=== PATIENT | female | born 1940 | race Caucasian/White ===

== ENCOUNTER 2016-07-10 01:59 | Inpatient (IN) | payer OTHER ==
[~2016-07-10] VITALS: Ht 167.6 cm; Wt 74.8 kg
[~2016-07-10 01:59] MED LIST: AMOXIL500 MG PO; CLARINEX 5 MG TA5 MG PO; CLOPIDOGREL75 M1 PO; COMBIVENT1 ARO INH; CRESTOR40 MG PO; CYCLOBENZAPRINE10 M1 PO; DILTIAZEM ER120 M2 PO; FLEXERIL10 MG PO; GLIPIZIDE5 M2 PO; LASTACAFT OPH; MATZIM PO; MOMETASONE0.05 MG/Ac NASB; OMEPRAZOLE20 M2 PO; PATANOL 5 ML5 ML OPH; PERCOCET 325 MG1 TA2 PO; PERCOCET 5-3251 EACH PO; PREDNISONE 20MG20 MG PO; ZITHROMAX Z-PA250 M1 PO; ZOFRAN ODT4 M1 SL
--- NOTE | 2016-07-10 10:57 | NUCLEAR MEDICINE REPORT ---
EXAMINATION: LYMPHOSCINTIGRAPHY CLINICAL INFORMATION: Reason for Study:
Signs Symptoms: RIGHT BREAST RECURRENT DCIS
COMPARISON: None. TECHNIQUE: A total of 1.0 mCi technetium 99m Lymphoseek was injected in divided doses around the right areola by Dr. Polanco. Images of the right breast and axilla in the anterior, DAVILA, and right lateral projections were obtained with simultaneous visualization of the body silhouette using a cobalt flood source, with the patient positioned between the flood source and the gamma camera. FINDINGS: A sentinal node is visualized in the right axilla. No second echelon node is visualized in the right axilla. IMPRESSION: A sentinal node in the right axilla is well visualized.
[2016-07-10] MEDS ORDERED: MATZIM LA360 M1 PO (12:06)
[2016-07-10] MEDS ORDERED: PLAVIX75 M1 PO (12:07)
--- NOTE | 2016-07-10 14:04 | Operative Report ---
Operative/Inv Procedure Report Surgery Date: 07/10/16 Name of Procedure: right total mastectomy, right axillary SNB, injection of blue dye Pre-Operative Diagnosis: right breast cancer Post-Operative Diagnosis: same Estimated Blood Loss: scant Surgeon/Light Rail Signal Technician: KINGSLEY MEDRANO,ELISHA NOVAK Anesthesia: general endotracheal tube Operative/Procedure Note Note: We reviewed the preoperative lymphoscintigraphy images, patient was placed on the OR table supine and her chest and neck and right axilla and upper arm were prepped and draped in the usual sterile fashion. There was a scar from previous excision on her right breast in the 10 o'clock position about a centimeter from the areolar edge, just superior to this scar I injected 2 mL's of diluted blue dye, subdermally. In a skin crease in her right axilla posterior to the pectoralis we infiltrated local anesthetic then made a 3 cm incision, we deepened this incision with both sharp and blunt dissection at first with cautery through the clavipectoral fascia place a Elina retractor in and underneath the edge of the pectoralis, this sentinel node was deep and medial as seen on the imaging, we used the neoprobe to guide us at the primary injection site the counts were as high as 15,000 in the axilla they were as high as 40 but as we got closer to the node the increased. Eventually we were able to pinpoint this lymph node it was very small and round and it had a count of 400 mm when we excised it. The background count now is less than 10. This little node was not blue. We did not see any other lymph nodes in the area. Care was taken to not injure any vessels or nerves during the dissection. This incision was then reapproximated with interrupted 3-0 Vicryl sutures for the clavipectoral fascia and subcutaneous followed by running subcuticular 4-0 Biosyn suture for the skin itself followed by Mastisol Steri-Strips. Final dressing was applied after the mastectomy Next we marked an elliptical incision on the right breast, around the nipple areolar complex and also including the previous scar, following the skin lines. This was deepened just through the dermis into the superficial subcutaneous layer and then Alexandrea clamps were placed into the dermis and the upper flap retracted upwards to separate the subcutaneous layer from the breast, some vessels were encountered in the subcutaneous layer these were small and preserved at times will need cautery to control them on the other side deeper coming through the muscle were vessels as well as we proceeded superiorly towards the clavicle and in one spot it was sizable enough to warrant 3-0 Vicryl suture. Once the superior flap was finished we started to take the superior portion of the breast off the muscle including the fascia using Allis clamps to help retract we also developed the inferior flap towards the rectus muscle medially and the serratus laterally and the dissection and separation continued from both sides including lifting the breast off of the muscle, eventually converging at the tail of the breast at the end laterally this did not enter the field of the sentinel node biopsy. After the breast was completely removed we checked for hemostasis irrigated and the plastic surgeon came in to complete the operation with the first phase of reconstruction. From my portion estimated blood loss minimal lap and sponge counts were correct wound expectancy was clean IV fluids crystalloid complications none the patient tolerated the procedure well.
--- NOTE | 2016-07-10 14:30 | Operative Report ---
Operative/Inv Procedure Report Surgery Date: 07/10/16 Name of Procedure: Right-sided breast reconstruction with tissue pricing consultant and AlloDerm Pre-Operative Diagnosis: Absent breast right Post-Operative Diagnosis: Same Estimated Blood Loss: scant Surgeon/Fiberglasser: TYSON Anesthesia: general endotracheal tube Operative/Procedure Note Note: Patient was counseled regards to the procedure the alternatives the risks and the expected outcomes as relates to her request for surgical intervention to replace an absence of breasts. Tissue pricing consultant and breast implant technique. The patient is a current smoker. THE additional risks with smoking and radiation have a significant impact on the aesthetic outcome of breast reconstruction with tissue expanders and implants. She'll be unable to discontinue the use of tobacco products and would like to proceed dissecting the additional risks. Also talked about infection bleeding pain seroma to explant due to infection and persistent drainage problems as well as tissue necrosis of the mastectomy flap once agreed informed consent was signed. She was taken to the operating room under the direction of Og Barksdale MD. At the completion of the mastectomy the area was prepped and drapes were placed in the periphery. Instrumentation was used. Site was irrigated which replanted biotic and Betadine. The pectoralis was released inferiorly and inferior medially. Cc tissue pricing consultant was then placed as well as an inferior sling of AlloDerm. Drains were placed above and below the AlloDerm. The wound was closed in 3 layers. Ends dictation
--- NOTE | 2016-07-10 15:47 | Admission Core Measures ---
Admission Meds I reviewed the following Meds: Current Medications Sig/Oliver Start time Last Medication Dose Stop Time Status Admin Cefazolin Sodium 1,000 MG ONCE 07/10 0000 NR (Kefzol-Ancef Inj) 07/10 0229 Acute Coronary Syndrome Inclusion Criteria ACS Diagnosis No Inpatient Core Measures LDL Reminder: If No, please order W/I first 24hr of stay Congestive Heart Failure Inclusion Criteria CHF Diagnosis No Cerebrovascular accident Inclusion Criteria CVA/TIA Diagnosis No Inpatient Core Measures Bedside Swallow Eval Reminder: If BSE failed, place ST order Antithrombotic Reminder: Order Antithrombotic Medication by end of day 2 Antithrombotic Reminder: Document Reason Antithrombotic Not ordered by end of day 2 AFIB/Flutter Reminder: If Present, add to problem list AFIB/Flutter Reminder: Order Anticoag Medication for pts with AFIB/Flutter Atherosclerosis Reminder: If Present, add to problem list LDL Reminder: If No, please order W/I first 24hr of stay PT Order Reminder: If No, please order Venous thromboembolism Inpatient Core Measures VTE Risk Factors: Age > 40, Cancer/chemo/oth therapy, Surgery VTE Prophylaxis Ordered Inpt Mech & Pharm No Mech VTE prophylaxis d/t No contraindications No VTE Pharm Prophylaxis d/t No contraindications Inclusion Criteria - Per Current guidelines, there needs to be overlap - treatment for the first 5 days of Warfarin therapy. - Parenteral Anticoagulation (IV or SC) needs to be - given along with Warfarin therapy. VTE Diagnosis No VTE Type NONE VTE Confirmed by (Test) NONE Problem List As ranked by this Provider includes Assessment & Plan 1. Breast cancer 2. Status post mastectomy 3. S/P breast reconstruction, right HOME MEDS Home Med List Alcaftadine (Lastacaft) 2.5 MG/ML QUINTIN 1 GTT OPH DAILY PRN ALLERGIES (Reported ) Clopidogrel Bisulfate (Plavix) 75 MG TABLET 75 MG PO D BLOOD THINNER ( Reported) Diltiazem HCl (Matzim LA) 360 MG TAB.ER.24H 360 MG PO D BLOOD PRESSURE ( Reported) Glipizide 5 MG TABLET 1 TAB PO QPM DM (Reported) Mometasone Furoate (Nasonex) 0.05 MG/Actuation SPR 2 SPRAY [place] DAILY ALLERGIES (Reported) Omeprazole 20 MG CAPSULE.DR 40 MG PO BID DUODENAL ULCER Ondansetron (Zofran Odt) 4 MG TAB.RAPDIS 1 TAB SL TID NAUSEA Discontinued Medications Diltiazem Cd (Diltiazem ER) 120 MG CAP.ER.DEG 120 MG PO DAILY heart Discontinued reason: Changed Dose
--- NOTE | 2016-07-10 16:59 | PN- General Surgery ---
Subjective Subjective: post-op note: Reports some nausea and dizziness while waking up in pacu. Reports some minor right sided chest / incisional discomfort. Not yet drinking. Not yet out of bed. Objective Vital Signs and I&Os Intake & Output 07/10 1600 07/10 0800 07/10 0000 07/09 1600 07/09 0800 07/09 0000 Intake Total Output Total Balance Patient 165 lb Weight Physical Exam: General - alert. sleepy. no acute distress. Lungs - clear bilaterally. no w/r/r. Cardiac - s1s2. reg. Chest - right sided dressing c/d/i. MADI drains (2) with approximately 50 mls bloody drainage (total) Abdomen - soft. nontender. - mcmillan draining clear, yellow urine. Extremities - warm bilaterally. no c/c/e. venodynes active b/l. Assessment/Plan Assessment/Plan This 75 year old white female with hx niddm, hld, hx tia, htn, right breast cancer, is now POD#0 s/p right total mastectomy, right axillary SNB, breast reconstruction with alloderm and tissue printed circuit board pcb draftsman advance diet as tolerated tony-operative ancef x 2. no need to be discharged with antibiotics per pain control as needed hep sc to start in the morning mcmillan for strict i/o's overnight, to be removed in the morning f/u am labs monitor drain output consider restarting daily dose of plavix tomorrow if MADI drain output seems reasonable / labs stable home meds restarted otherwise case repairer to assist with vns services for drain care to be discharged with both drains, to follow up with and within one week d/w and Core Measures/Miscellaneous Venous Thromboembolism VTE Risk Factors: Age > 40, Cancer/chemo/oth therapy, Smoking, Surgery VTE Contraindications: No Contraindications VTE Prophylaxis Ordered Inpt Mech & Pharm VTE Diagnosis: No VTE Type: NONE VTE Confirmed by (Test): NONE Beta Shoaib Is Beta Shaoib a Home Med? No Antibiotics Is Patient on Antibiotics? Yes If Yes: prophylaxis
[2016-07-10 19:20] VITALS: BP 110/60
--- NOTE | 2016-07-10 20:31 | NUR ---
PATIENT RECEIVED FROM PACU AT 1920. PATIENT DROWSY BUT AROUSABLE. MADI DRAIN TO RIGHT CHEST DRAINING SEROUS DRAINAGE. DELVALLE CATHETER INTACT AND DRAINING CLEAR CHARLIE URINE. IV FLUID INFUSING AT 100 ML/HR. SPOUSE AT BEDSIDE. PATIENT C/O PAIN AT 7/10. PAIN MEDICATION GIVEN ORDERED. CALL LIGHT WITHIN REACH. WILL CONTINUE TO MONITOR.
[2016-07-10 21:06] VITALS: BP 132/64
[2016-07-11 00:56] VITALS: BP 154/68
[2016-07-11 03:09] VITALS: BP 144/66
[2016-07-11 05:03] VITALS: BP 162/74
[2016-07-11] MEDS ORDERED: DOCUSATE SODIU100 M3 PO (07:38)
--- NOTE | 2016-07-11 07:38 | PN- General Surgery ---
Subjective Subjective: Reports slight nausea this morning, which she feels is related to her taking medications without food. Tolerating clears. Eager to try food and anticipates discharge to home today. She expresses an interest in vna services for drain care. She hasn't been out of bed yet. No dizziness. No shortness of breath. Expected chest / breast discomfort. Objective Vital Signs and I&Os Vital Signs Date Time Temp Pulse Resp B/P Pulse O2 O2 Flow FiO2 Ox Delivery Rate 07/11 0503 98.0 72 19 162/74 92 Nasal 2.0L Cannula 07/11 0309 97.6 76 19 144/66 93 Nasal 2.0L Cannula 07/11 0056 98.1 59 18 154/68 96 Nasal 2.0L Cannula 07/11 0000 Nasal 2.0L Cannula 07/10 2105 98.0 63 20 132/64 96 Room Air 07/10 1927 91 Nasal 2.0L Cannula 07/10 1919 97.7 81 20 110/60 91 Nasal 2.0L Cannula Intake & Output 07/11 0800 07/11 0000 07/10 1600 07/10 0800 07/10 0000 07/09 1600 Intake Total 780 Output Total 703 1545 Balance -703 -765 Intake, IV 300 Intake, Oral 480 Output, 53 45 Drainage Output, Urine 650 1500 Physical Exam: General - alert & oriented x 3. comfortable. no acute distress. Lungs - clear bilaterally. no w/r/r. Cardiac - s1s2. reg. Chest - right sided dressing c/d/i. MADI drains with serosang drainage Abdomen - soft. nontender. - mcmillan draining clear, yellow urine Extremities - warm bilaterally. no c/c/e. calves soft and nontender b/l. Assessment/Plan Assessment/Plan This 75 year old white female with hx niddm, hld, hx tia, htn, right breast cancer, is now POD#1 s/p right total mastectomy, right axillary SNB, breast reconstruction with alloderm and tissue textile finisher advance diet as tolerated. d/c iv fluids tony-operative ancef x 2 completed oxycodone as directed for pain control she refused heparin sc this morning despite being educated. she is going to try ambulating this am. d/c mcmillan f/u am labs MADI drain teaching restart plavix at home when discharged home meds ordered showcase trimmer to assist with vns services for drain care d/c home today with vna / drain care will d/w and Core Measures/Miscellaneous Venous Thromboembolism VTE Risk Factors: Age > 40, Cancer/chemo/oth therapy, Smoking, Surgery VTE Contraindications: No Contraindications VTE Prophylaxis Ordered Inpt Mech & Pharm VTE Diagnosis: No VTE Type: NONE VTE Confirmed by (Test): NONE Beta Shoaib Is Beta Shoaib a Home Med? No Antibiotics Is Patient on Antibiotics? Yes If Yes: prophylaxis
[2016-07-11] MEDS ORDERED: TYLENOL325 M1 PO (07:40)
[2016-07-11] MEDS ORDERED: OXYCODONE HCL5 M1 PO (07:40)
--- NOTE | 2016-07-11 07:43 | Patient Discharge Instructions ---
Discharge Instructions General Discharge Information You were seen/treated for: right breast cancer You had these procedures: Surgery Date: 07/10/16 Name of Procedure: right total mastectomy, right axillary SNB, injection of blue dye Right-sided breast reconstruction with tissue harvest contractor and AlloDerm Watch for these problems: fever>101.3, increased pain, increased drainage, shortness of breath, dizziness Other wound care: dry guaze dressing change daily, right breast. leave white steri strips in place - they will fall off. Special Instructions: MADI drain care Diet Continue normal diet: Yes Recommended Diet: Diabetic Activity Full Activity/No Limits: No Activity Self Limited: Yes Other activity limits: see pre-printed instructions given by pre-operatively Acute Coronary Syndrome Inclusion Criteria At DC or during hospital stay patient has or had the following: ACS DIAGNOSIS No Discharge Core Measures Meds if any: Prescribed or Continued at Discharge Meds if any: NOT Prescribed or Continued at Discharge Congestive Heart Failure Inclusion Criteria At DC or during hospital stay patient has or had the following: CHF DIAGNOSIS No Discharge Core Measures Meds if any: Prescribed or Continued at Discharge Meds if any: NOT Prescribed or Continued at Discharge Cerebrovascular accident Inclusion Criteria At DC or during hospital stay patient has or had the following: CVA/TIA Diagnosis No Discharge Core Measures Meds if any: Prescribed or Continued at Discharge Meds if any: NOT Prescribed or Continued at Discharge Venous thromboembolism Inclusion Criteria VTE Diagnosis No VTE Type NONE VTE Confirmed by (Test) NONE Discharge Core Measures - Per Current guidelines, there needs to be overlap - treatment for the first 5 days of Warfarin therapy. - If discharged on Warfarin prior to 5 days of - overlap therapy, the patient will need to be - assessed for post discharge needs including - *Post discharge parental anticoagulation - *Warfarin and/or parental anticoagulation education - *Follow up date to check INR post discharge At least 5 days overlap therapy as Inpatient No Meds if any: Prescribed or Continued at Discharge Note: Overlap Therapy is Warfarin and Anticoagulant Meds if any: NOT Prescribed or Continued at Discharge
[2016-07-11 08:13] LABS: ABSOLUTE BASOPHIL COUNT 0 /CUMM (0.0-0.2); ABSOLUTE EOSINOPHIL COUNT 0.1 /CUMM (0.0-0.7); ABSOLUTE GRANULOCYTE CT 5.6 /CUMM (1.4-6.5); ABSOLUTE LYMPH COUNT 1.6 /CUMM (1.2-3.4); ABSOLUTE MONOCYTE COUNT 0.9 /CUMM (0.10-0.60); BASOPHIL % 0.4 % (0.0-2.0); EOSINOPHIL % 0.8 % (0-5); GRANULOCYTE % 68.8 % (42.2-75.2); HEMATOCRIT 36.8 % (37-47); MEAN CORPUSCULAR HGB CONC 33.5 G/DL (33.0-37.0); MEAN CORPUSCULAR VOLUME 83.6 FL (81.0-99.0); MEAN PLATELET VOLUME 9.2 FL (7.4-10.4); PLATELET COUNT 206 /CUMM (130-400); RBC DISTRIBUTION WIDTH 17.6 % (11.5-14.5); WHITE BLOOD CELL COUNT 8.2 /CUMM (4.8-10.8)
[2016-07-11 09:07] VITALS: BP 156/70
[2016-07-11] MEDS ORDERED: ULTRAM50 M1 PO (14:27)
--- NOTE | 2016-07-23 18:33 | Discharge Summary ---
Visit Information Visit Dates Admission Date: 07/10/16 Discharge Date: 07/11/16 Hospital Course Course Attending Physician: KINGSLEY MEDRANO,ELISHA Lizarraga Primary Care Physician: KEVIN WELLER Hospital Course: Patient underwent a right mastectomy right axilla sentinel for biopsy and reconstruction and was kept admitted overnight for analgesics monitoring the skin flaps the drainage for bleeding she did require IV analgesics overnight dressing was dry the drains with stay, she did well overall and was discharged on oral analgesics. Allergies: Coded Allergies: morphine (Mild, VOMITING 09/17/15) Disposition Summary Disposition Principal Diagnosis: breast cancer Additional Diagnosis: same Discharge Disposition: home or self care Discharge Instructions General Discharge Information Code Status: Full Code Patient's Diet: resume Patient's Activity: no straining or heavy lifting Follow-Up Instructions/Appts: Next week in our office but call plastic surgery for their follow-up Medications at Discharge Discharge Medications: Continue taking these medications: Rosuvastatin Calcium (Crestor) 40 MG TAB 1 Tablet ORAL Qty = 36 Instructions: TAKES 3 DAYS A WEEK Glipizide (Glipizide) 5 MG TABLET 1 Tablet ORAL Every night Comments: NOT GIVEN IN HOSPITAL. Mometasone Furoate (Nasonex) 0.05 MG/Actuation SPR 2 [place] Both sides of nose DAILY Qty = 17 Alcaftadine (Lastacaft) 2.5 MG/ML QUINTIN 1 Drop In the eye DAILY as needed for ALLERGIES Qty = 3 Omeprazole (Omeprazole) 20 MG CAPSULE.DR 40 Milligram ORAL TWICE DAILY Days = 30 Comments: Last Taken: 02/15/16 Time: 0830 Diltiazem HCl (Matzim LA) 360 MG TAB.ER.24H 360 Milligram ORAL Every Day Comments: Last Taken: 07/11/16 Time: 0930 Clopidogrel Bisulfate (Plavix) 75 MG TABLET 75 Milligram ORAL Every Day Start taking the following new medications: Acetaminophen (Tylenol) 325 MG TABLET 650 Milligram ORAL EVERY SIX HOURS NEEDED as needed for pain control Days = 10 No Refills Instructions: available over the counter Docusate Sodium (Docusate Sodium) 100 MG CAPSULE 100 Milligram ORAL TWICE DAILY as needed for CONSTIPATION Days = 14 No Refills Instructions: stool softener available over the counter, as needed Tramadol HCl (Ultram) 50 MG TABLET 1 Tablet ORAL EVERY 4-6 HOURS NEEDED as needed for pain control Qty = 30 No Refills Instructions: take as directed for pain control. you may take tylenol in combination or alternatively. Copies To: KINGSLEY MEDRANO,ELISHA Lizarraga
== END 2016-07-11 14:38 | disposition home health service (06) | DRG 581 ==
LOC: ENRESERVTM → ENRESERVDT → SDA 01:59 → 2NB 01:59 → ENPENDDIS 01:59 → STS 07:00 → EDSTATUS 07:00 → SDA 07:00 → XRY 09:00 → 2NB 19:00
PROVIDERS: Physician Assistant; ADMIT Surgery
PROC: 0HTT0ZZ Resection of Right Breast, Open Approach (ICD-10-PCS; principal; 2016-07-10)
PROC: 07B50ZX Excision of Right Axillary Lymphatic, Open Approach, Diagnostic (ICD-10-PCS; principal; 2016-07-10)
PROC: 0HHT0NZ Insertion of Tissue Expander into Right Breast, Open Approach (ICD-10-PCS; 2016-07-10)
DX: C50.911 Malignant neoplasm of unspecified site of right female breast (principal); E11.9 Type 2 diabetes mellitus without complications; I10 Essential (primary) hypertension; Z86.73 Personal history of transient ischemic attack (TIA), and cerebral infarction without residual deficits; F17.200 Nicotine dependence, unspecified, uncomplicated
CPT/HCPCS: 2NBP; 36415; 82436; 87086; 88307; A9520; J0131; J0690; J1170; J1580; J1644; J2405; J2765; J7040; J7042; Q4116

== ENCOUNTER → 2016-12-25 | Day surgery (SDC) | payer OTHER ==
[~2016-12-25] MED LIST changes: +CRESTOR40 M2 PO; -CRESTOR40 MG PO; +DOCUSATE SODIU100 M3 PO; +MATZIM LA360 M1 PO; +OXYCODONE HCL5 M1 PO; +PAZEO2.5 ML; +PLAVIX75 M1 PO; +TYLENOL325 M1 PO; +ULTRAM50 M1 PO
--- NOTE | 2016-12-25 13:24 | Operative Report ---
Operative/Inv Procedure Report Surgery Date: 12/25/16 Name of Procedure: Removal of tissue and then a right breast Capsulectomy right breast Revision reconstructed breast with lateral capsulorrhaphy and resetting of the inframammary fold Placement 315 high profile [place] silicone textured implant Pre-Operative Diagnosis: abSent right breast Post-Operative Diagnosis: Same Estimated Blood Loss: scant Surgeon/Stem Shaper: TYSON MEDRANO,AUDREY Duran Anesthesia: laryngeal mask airway Operative/Procedure Note Note: Patient was counseled Mayer the procedure the alternatives risks and expected outcomes as relates to request for continued reconstruction of her right breast following mastectomy and tissue expansion. The patient has significant capsule. We talked about the risks especially as relates to her use of tobacco in regards to infection bleeding pain need for explantation and capsule contracture. Once agreed informed consent was signed. She was marked in the standing position. She was brought to the operating room placed supine on the table of Venodyne boots are placed and then laryngeal mask anesthesia was established intravenous antibiotics were given. Chest reprepped and draped in usual sterile fashion. Inframammary incision was developed through the skin and subcutaneous tissue. The capsule was opened and the survey research professor was removed. Capsulectomy was performed with 6 Capsule and a portion was sent for path analysis. Was carried out with triple antibiotic and Betadine. Lateral capsulorrhaphy as was performed to reduce the and she'll space. [place] fold was resected after suturing it down to deeper tissues at a more appropriate level. Touch technique was used as well as a Lelia funnel the 350 mL high-profile textured mentor implant after a triple antibiotic and Betadine bath. Pocket with good fit and a 3 layer closure was carried out of the eye and path incision.
== END ==
LOC: STS 02:33
DX: Z85.3 Personal history of malignant neoplasm of breast (principal); Z90.11 Acquired absence of right breast and nipple; I48.92 Unspecified atrial flutter; I10 Essential (primary) hypertension; Z87.891 Personal history of nicotine dependence; E11.9 Type 2 diabetes mellitus without complications; E78.00 Pure hypercholesterolemia, unspecified
CPT/HCPCS: J0690; J1580; J2250; L8600

== ENCOUNTER 2017-11-19 22:33 | Emergency (ER) | payer OTHER ==
[~2017-11-19 22:33] MED LIST changes: +AMOXICILLIN875 M1 PO; -PAZEO2.5 ML; +PAZEO2.5 ML OU; +PROAIR HFA8.5 GM INH; +TESSALON PERLE100 M1 PO
[2017-11-19] MEDS ORDERED: OMEPRAZOLE40 M1 PO (22:52)
--- NOTE | 2017-11-19 23:09 | ED CARDIAC/CP/PALPITATIONS ---
History of Present Illness General Chief Complaint: General Adult Stated Complaint: "MY HEART IS RACING" 97 ON PULSE OX Source: patient Exam Limitations: no limitations Vital Signs & Intake/Output Vital Signs & Intake/Output Vital Signs Date Time Temp Pulse Resp B/P B/P Pulse O2 O2 Flow FiO2 Mean Ox Delivery Rate 11/20 0322 97.8 59 18 112/64 95 Room Air 11/20 0022 98.4 75 18 140/72 96 Room Air 11/19 2330 95 Room Air 11/19 2252 97.9 87 18 161/99 97 Room Air ED Intake and Output 11/20 0000 11/19 1200 Intake Total 0 Output Total Balance 0 Intake, Oral 0 Allergies Coded Allergies: morphine (Mild, VOMITING 09/17/15) Reconcile Medications Clopidogrel Bisulfate (Plavix) 75 MG TABLET 75 MG PO DAILY BLOOD THINNER ( Reported) Diltiazem HCl (Matzim LA) 300 MG TAB.ER.24H 1 TAB PO NIGHTLY HEART BEAT ( Reported) Glipizide 5 MG TABLET 1 TAB PO QPM DM (Reported) Olopatadine HCl (Pazeo) 0.7 % DROPS 1 DROP OU QPM ITCHY EYES (Reported) Omeprazole 40 MG CAPSULE.DR 1 CAP PO DAILY GI (Reported) Rosuvastatin Calcium (Crestor) 40 MG TABLET 1 TAB PO MONTHURS CHOLESTEROL ( Reported) Triage Note: PT TO TRIAGE WITH A FEELING OF HEART RACING, CHEST PRESSURE AND LEFT ARM PAIN STARTING AT 2130. PT STATES SHE WAS UST ABOUT TO GO TO BED. DENIES SOB. SKIN WARM AND DRY. EKG DONE ON ARRIVAL. PT BROUGHT DIFECTLY TO 4 Triage Nurses Notes Reviewed? yes HPI: Patient presents for evaluation of racing heart that began at about 9:30 this evening while she was going to bed. Patient describes as a severe irregular heartbeat with a cold feeling in her chest that also included tightness and heaviness. Her left arm was also involved. She states she had a similar episode about 3 weeks ago and had a subsequent Holter monitor placed by her drag seiner. She states that her drag seiner states that her blood is "sloshing around inside her heart" and she needs "an ablation". Patient denies diaphoresis but did feel warm. She denies any associated leg swelling. She has no symptoms currently. She admits to drinking a lot of caffeine up to 16 cups daily. She drinks alcohol only rarely. Past History Travel History Traveled to [place] past 21 day No Medical History Any Pertinent Medical History? 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 No Review of Systems Review of Systems Constitutional: Reports: no symptoms. EENTM: Reports: no symptoms. Respiratory: Reports: no symptoms. Cardiovascular: Reports: see HPI. GI: Reports: no symptoms. Genitourinary: Reports: no symptoms. Musculoskeletal: Reports: no symptoms. Skin: Reports: no symptoms. Neurological/Psychological: Reports: no symptoms. Hematologic/Endocrine: Reports: no symptoms. Immunologic/Allergic: Reports: no symptoms. All Other Systems: Reviewed and Negative Physical Exam Physical Exam Cardiovascular: SEE BELOW Comments: Gen.: Well-nourished, well-developed, no acute respiratory distress. Head: Normocephalic, atraumatic. Eyes: Normal inspection bilaterally Ears: Normal inspection bilaterally Nose: Normal inspection Throat/mouth : Moist mucosa Neck: Supple, full range of motion, no goiter, no JVD Heart: Regular rate and rhythm, no murmurs rubs or gallops Lungs: Clear to auscultation bilaterally with normal air entry Chest: Nontender Back: Normal range of motion Abdomen: Soft, nontender, nondistended, normal bowel sounds Extremities: Normal range of motion grossly, equal radial pulses, no cyanosis clubbing or edema, calves nontender Neurologic: Cranial nerves grossly intact, speech is clear Skin: warm and dry Psychiatric: Calm, cooperative, no apparent delusions or hallucinations Core Measures ACS in differential dx? No CVA/TIA Diagnosis No Sepsis Present: No Sepsis Focused Exam Completed? No Progress Differential Diagnosis: ATRIAL FIBRILLATION, MULTIFOCAL ATRIAL TACHYCARDIA, ECTOPIC ATRIAL RHYTHM pacS, pvcS, EXCESSIVE CAFFEINE INTAKE Plan of Care: Orders Procedure Date/time Status TROPONIN LEVEL 11/20 031 Complete EKG 11/20 031 Active Vital Signs 11/19 2351 Active THYROID STIMULATING HORMONE 11/20 2307 Complete TROPONIN LEVEL 11/20 2307 Complete T3 UPTAKE (THYROXINE BIND CAP) 11/20 2307 Complete THYROXINE 11/20 2307 Complete PARTIAL THROMBOPLASTIN TIME 11/20 2307 Complete PROTHROMBIN TIME 11/20 2307 Complete MAGNESIUM 11/20 2307 Complete CBC WITHOUT DIFFERENTIAL 11/20 2307 Complete BASIC METABOLIC PANEL 11/20 2307 Complete EKG 11/19 2240 Active Laboratory Tests 11/20/17 0305: Troponin I 0.03 11/19/17 2332: Anion Gap 8, Estimated GFR > 60, BUN/Creatinine Ratio 35.0 H, Glucose 135 H, Calcium 9.2, Magnesium 1.9, Troponin I < 0.01, TSH 2.770, Thyroxine (T4) 8.4, Thyroxine Binding Indx 32.8, PT 11.0, INR 1.01, APTT 31, CBC w Diff NO MAN DIFF REQ, RBC 4.79, MCV 89.2, MCH 29.8, MCHC 33.4, RDW 15.0 H, MPV 8.8, Gran % 47.8, Lymphocytes % 35.9, Monocytes % 14.0 H, Eosinophils % 2.0, Basophils % 0.3, Absolute Granulocytes 3.1, Absolute Lymphocytes 2.3, Absolute Monocytes 0.9 H, Absolute Eosinophils 0.1, Absolute Basophils 0 Diagnostic Imaging: Discussed w/RAD: Radiology Read. CXR Impression: PATIENT: MARIA L NICOLAS PRESENT AGE: 77 PATIENT ACCOUNT NO: [id number] : 39 LOCATION: [facility] ORDERING PHYSICIAN: Fady Alcaraz MD SERVICE DATE: 11/19/17 EXAM TYPE: RAD - XRY-PORTABLE CHEST XRAY EXAMINATION: CHEST 1 VIEW CLINICAL INFORMATION: Irregular heartbeat. Concern for CHF. COMPARISON: 06/12/2017. TECHNIQUE: An AP view of the chest is provided. FINDINGS: The cardiac silhouette is not enlarged. The mediastinal and hilar contours are unremarkable. There are neither pleural effusions nor pneumothoraces. There are no consolidations. The osseous structures are stable. IMPRESSION: No evidence for acute disease. DICTATED BY: Giovani Arnett MD DATE/ TIME DICTATED:11/19/172339 ACQUISITION EDITOR:BRENNA DATE/TIME TRANSCRIBED: 11/19/172339 CONFIDENTIAL, DO NOT COPY WITHOUT APPROPRIATE AUTHORIZATION. < Electronically signed in Other Vendor System> SIGNED BY: Giovani Arnett MD 11/19/172344 Initial ED EKG: IRREGULAR ATRIAL TACHYCARDIA WITH OVERALL VENTRICULAR RESPONSE OF 123 BPM. Prior EKG: changed (NORMAL SINUS RHYTHM ON PRIOR) Repeat EKG: unchanged Rhythm Strip: NORMAL SINUS RHYTHM WITH EPISODES OF AN IRREGULAR TACHYCARDIA, NARROW COMPLEX. Comments: During history and physical examination the patient alternated between a normal sinus rhythm in the 70s to 80s with an irregular narrow complex tachycardia. Per RN, patient has declined an IV. 11/19/2017 11:50:59 PM and is resting comfortably with a normal sinus rhythm in the low 70s on monitor. 11/20/2017 12:59:40 AM patient's case discussed with Dr. Rendon feels the patient should continue her current medications and feels the addition of beta chantal unnecessary at this time. He does agree patient should cut back on her caffeine intake. 11/20/2017 3:48:34 AM Maria L remains in a normal sinus rhythm. Repeat EKG and troponins are normal. Departure Departure Disposition: HOME OR SELF CARE Condition: Stable Clinical Impression Primary Impression: Irregular heart rhythm Referrals: Chad NOVAK,Ariana Holliday (PCP/Family) Additional Instructions: Follow-up with your drag seiner as soon as possible for reevaluation of your irregular heart rhythm. Cut down on her caffeine intake. Return if any concerns or sudden worsening. Please note that there might be incidental findings in your evaluation that are unrelated to the current emergency department visit. Please notify your primary care doctor about this emergency department visit in order to obtain and review all of the testing performed so that these incidental findings can be monitored as needed. If you had an x-ray performed, please understand that some fractures may not be seen on the initial set of x-rays. If your symptoms persist you might need a repeat set of x-rays to check for such a fracture. If you had a laceration evaluated, please understand that foreign bodies such as glass or wood may not be visible to the naked eye or on plain x-rays. If the wound becomes red, swollen, increasingly more painful or if there is any drainage from the wound, please have it reevaluated by a physician for the possibility of a retained foreign body. If you're unable to follow up as outlined in the discharge instructions please return to the emergency department. Thank you for choosing the [facility] Emergency Department for your care. It was a pleasure to serve you today. Fady Alcaraz M.D. [facility] Departure Forms: Customer Survey General Discharge Information Critical Care Note Critical Care Note Critical Care Time: non-applicable
[2017-11-19 23:44] LABS: ABSOLUTE BASOPHIL COUNT 0 /CUMM (0.0-0.2); ABSOLUTE EOSINOPHIL COUNT 0.1 /CUMM (0.0-0.7); ABSOLUTE GRANULOCYTE CT 3.1 /CUMM (1.4-6.5); ABSOLUTE LYMPH COUNT 2.3 /CUMM (1.2-3.4); ABSOLUTE MONOCYTE COUNT 0.9 /CUMM (0.10-0.60); BASOPHIL % 0.3 % (0.0-2.0); GRANULOCYTE % 47.8 % (42.2-75.2); HEMATOCRIT 42.7 % (37-47); MEAN CORPUSCULAR HGB 29.8 PG (27.0-31.0); MEAN CORPUSCULAR HGB CONC 33.4 G/DL (33.0-37.0); MEAN CORPUSCULAR VOLUME 89.2 FL (81.0-99.0); MEAN PLATELET VOLUME 8.8 FL (7.4-10.4); PLATELET COUNT 201 /CUMM (130-400); RED BLOOD CELL CT 4.79 /CUMM (4.20-5.40); WHITE BLOOD CELL COUNT 6.4 /CUMM (4.8-10.8)
--- NOTE | 2017-11-19 23:45 | RADIOLOGY REPORT ---
EXAMINATION: CHEST 1 VIEW CLINICAL INFORMATION: Irregular heartbeat. Concern for CHF. COMPARISON: 06/12/2017. TECHNIQUE: An AP view of the chest is provided. FINDINGS: The cardiac silhouette is not enlarged. The mediastinal and hilar contours are unremarkable. There are neither pleural effusions nor pneumothoraces. There are no consolidations. The osseous structures are stable. IMPRESSION: No evidence for acute disease.
[2017-11-19 23:57] LABS: PTT 31 SEC (25-37)
[2017-11-20 03:22] VITALS: BP 112/64
== END 2017-11-20 04:00 ==
LOC: ERH 22:33
PROVIDERS: Emergency Medicine
DX: I49.9 Cardiac arrhythmia, unspecified (principal)
CPT/HCPCS: 71045; 93005; 93010